=== PATIENT | female | born 1995 | race Caucasian/White ===

== ENCOUNTER 2016-10-09 02:19 | Emergency (ER) | payer SELFPAY ==
[~2016-10-09] VITALS: Ht 157.5 cm; Wt 57.6 kg
[2016-10-09 02:32] VITALS: BP 115/66
--- NOTE | 2016-10-09 02:44 | PHYS DOC ---
Past Medical History Past Medical History: Anxiety, Depression, Other Additional Past Medical Histor: PTSD, GENITAL HERPES Past Surgical History: Appendectomy, Other Additional Past Surgical Histo: D&C Alcohol Use: None Drug Use: Methamphetamine Adult General Chief Complaint Chief Complaint: DRUG ABUSE [facility] HPI Patient is a 21 year old female brought in by [facility] as she wants her baby checked. She says that she was in [facility] and reportedly had a warrant out for her arrest and police said that she had the option to go to group home or to go to the hospital. Patient chose to come to the hospital and she says that she smoked methamphetamines yesterday and once to see if her baby is okay. She has had little to no care and she says that she is trying to follow at [facility] but she has not filled out her Medicaid information but is trying to work on it. She is and says this is the furthest along that she has ever been in any of her pregnancies. She thinks that she is approximately 17 weeks based off dates although she does not seem to be showing like a 17 like female. She denies any abdominal pain dysuria hematuria fevers chills nausea vomiting vaginal bleeding or vaginal discharge. She is in no obvious distress with normal vital signs. Review of Systems Review of Systems Constitutional: Denies fever or chills [] Respiratory: Denies cough or shortness of breath [] Cardiovascular: No additional information not addressed in HPI [] GI: Denies abdominal pain, nausea, vomiting, bloody stools or diarrhea [] : Denies dysuria or hematuria [] Musculoskeletal: Denies back pain or joint pain [] Allergies Allergies Allergies Coded Allergies Type Severity Reaction Last Updated Verified No Known Drug Allergies 01/22/14 No Physical Exam Physical Exam Constitutional: Well developed, well nourished, no acute distress, non-toxic appearance. [] Cardiovascular:Heart rate regular rhythm, no murmur [] Lungs & Thorax: Bilateral breath sounds clear to auscultation [] Abdomen: Bowel sounds normal, soft, no tenderness, no masses, no pulsatile masses. [] Back: No tenderness, no CVA tenderness. [] Extremities: No tenderness, no cyanosis, no clubbing, ROM intact, no edema. [] Neurologic: Alert and oriented X 3, normal motor function, normal sensory function, no focal deficits noted. [] Current Patient Data Vital Signs Vital Signs Date Time Temp Pulse Resp B/P (MAP) Pulse Ox O2 Delivery O2 Flow Rate FiO2 10/09/16 02:32 98.1 89 16 115/66 (82) 100 Room Air 98.1 Lab Values Laboratory Tests Test 10/09/16 01:31 POC Urine HCG, Qualitative Hcg positive (Negative) EKG EKG [] Radiology/Procedures Radiology/Procedures Bedside ultrasound showed intrauterine with normal amount of fluid in addition the is a fetus present with a heart rate of 145 bpm and there is normal movement. Course & Med Decision Making Course & Med Decision Making Patient with intrauterine however there is no complaints related to her and in fact she has no complaints at all. I told her the importance of getting care and that she should get OB follow-up as soon as possible especially given all of her prior complications. Patient verbalized understanding and said that she would trying to finish the paperwork and follow with OB later this week. I told her to Come back to the ER with any concerns. Dragon Disclaimer Dragon Disclaimer This electronic medical record was generated, in whole or in part, using a voice recognition dictation system. Departure Departure Impression: Primary Impression: Additional Impression: Drug abuse Disposition: 01 HOME, SELF-CARE Condition: GOOD Referrals: NO PCP (PCP) BRIANNA BRIGGS MD Patient Instructions: ABCs of Problem Qualifiers VARSHA CABRAL DO Oct 09, 2016 02:44
== END 2016-10-09 02:49 | disposition home or self-care (01) ==
LOC: ER 02:19 → EDBD 02:19 → ER 02:49
DX: O26.892 Other specified pregnancy related conditions, second trimester (principal); F15.10 Other stimulant abuse, uncomplicated; Z90.89 Acquired absence of other organs; Z3A.17 17 weeks gestation of pregnancy
CPT/HCPCS: 81025; 99283; 99284-25